=== PATIENT | female | born 2000 | race Caucasian/White ===

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

== ENCOUNTER 2019-12-17 05:56 | Inpatient (IN) ==
[2019-12-17] MEDS ORDERED: *HR* FentaNYL (PF) 100 MCG/2 ML VIAL IVP PRN (06:22)
[2019-12-17] MEDS ORDERED: Lidocaine 1% 20 ML MDV ID PRN (06:22)
[2019-12-17] MEDS ORDERED: Famotidine 20 MG/2 ML VIAL IVP PRN (06:22)
[2019-12-17] MEDS ORDERED: Ondansetron 4 MG/2 ML VIAL IVP PRN (06:22)
[2019-12-17] MEDS ORDERED: Azithromycin 500 MG in 0.9 % Sodium Chloride 250 ML IVPB ONE (06:22)
[2019-12-17] MEDS ORDERED: Naloxone 0.4 MG/ML INJ IVP PRN (06:22)
[2019-12-17] MEDS ORDERED: Metoclopramide 10 MG/2 ML VIAL IVP PRN (06:22)
[2019-12-17] MEDS ORDERED: Oxytocin 20 units/ LR 1000 mL 20 UNIT/1,000 ML BAG IVC SCH ×2 (06:30→19:21)
[2019-12-17] MEDS: Ringers Solution, Lactated 1,000 ML IVC SCH ×2 (07:01→13:21)
[2019-12-17 07:02] LABS: Basophils # 0.1 K/mcL (0.0-0.2); Basophils % 0.4 %; Eosinophils # 0.3 K/mcL (0.0-0.6); Hematocrit 37.7 % (35.3-44.9); Hemoglobin 11.7 g/dL (11.5-15.4); Immature Granulocytes % 0.9 % (0-4); Lymphocytes % 24.3 %; Mean Corpuscular Hemoglobin 25.7 pg (28.0-33.3); Mean Corpuscular Volume 82.9 fL (83.0-100.0); Mean Platelet Volume 10.2 fL (9.4-12.4); Monocytes # 1.4 K/mcL (0.0-1.3); Monocytes % 8.4 %; Platelet Count 399 K/mcL (140-400); Red Blood Count 4.55 M/mcL (3.82-4.97); Red Cell Distribution Width 13.7 % (11.5-14.5); White Blood Count 16.5 K/mcL (4.3-11.1)
[2019-12-17 07:07] LABS: Neutrophils # 10.6 K/mcL (1.6-8.9)
[2019-12-17 07:29] LABS: Platelet Estimate Normal (Normal); Reactive Lymphocytes Present (Not Present)
[2019-12-17] MEDS ORDERED: EPHEDrine 50 MG/ML VIAL IVP PRN (07:34)
[2019-12-17] MEDS ORDERED: Epidural Premix (fent/bupiv) 110 ML EP SCH (07:45)
[2019-12-17 09:04] LABS: Amphetamine Screen,Urine Negative ng/mL (Cutoff=1000); Barbiturate Screen,Urine Negative ng/mL (Cutoff=200); Benzodiazepines Screen,Urine Negative ng/mL (Cutoff=200); Cannabinoid Screen,Urine Negative ng/mL (Cutoff = 50); Cocaine Screen,Urine Negative ng/mL (Cutoff= 300); Opiate Screen,Urine Negative ng/mL (Cutoff=300); Phencyclidine Screen,Urine Negative ng/mL (Cutoff=25)
[2019-12-17] MEDS ORDERED: Methylergonovine 0.2 MG/ML AMPUL IM ONE (12:47)
[2019-12-17] MEDS ORDERED: Benzocaine/Menthol 56 GM AEROSOL SPRAY TP PRN (19:21)
[2019-12-17] MEDS ORDERED: Acetaminophen 325 MG TABLET PO PRN (19:21)
[2019-12-17] MEDS: Ibuprofen 600 MG TABLET PO PRN (22:05)
[2019-12-18 03:55] VITALS: BP 86/65
[2019-12-18] MEDS: Ibuprofen 600 MG TABLET PO PRN (08:47)
[2019-12-18] MEDS ORDERED: Prenatal Vit/FA 1 EACH TABLET PO SCH (09:00)
[2019-12-18] MEDS ORDERED: Etonogestrel 68 MG IMPLANT IL ONE (10:43)
[2019-12-18] MEDS ORDERED: Lidocaine/EPI 1:100k 1% 30 ML VIAL INFILT ONE (10:43)
== END 2019-12-18 12:48 | disposition home or self-care (01) | DRG 560 ==
LOC: 1NENULAB 05:56 → 1NENUOBS 19:19
PROVIDERS: ADMIT Registered Nurse; ATTEND Registered Nurse